=== PATIENT | male | born 1985 | race Hispanic/Latino ===

== ENCOUNTER 2018-12-03 22:33 | Emergency (ER) | payer SELFPAY ==
[2018-12-04] MEDS ORDERED: ONDANSETRON 4 MG/2 ML VIAL ONE (00:06)
[2018-12-04] MEDS ORDERED: NA CHLORIDE 0.9% 1,000 ML ONE (00:06)
[2018-12-04] MEDS ORDERED: MORPHINE 2 MG/ML SYR ONE (00:06)
[2018-12-04 00:24] LABS: Absolute Lymphocytes (CBC) 1.8 K/uL (0.7-4.9); Basophils % 0.5 % (0-1.3); Hematocrit 38.7 % (39.6-49.0); Lymphocytes % 34.3 % (15.3-44.8); MPV 7.9 fL (7.6-11.3); RBC Red Blood Cell Count 4.51 M/uL (4.33-5.43)
[2018-12-04 00:42] LABS: Protime INR 1.02
[2018-12-04 00:53] LABS: ALT/SGPT 43 U/L (12-78); AST/SGOT 21 U/L (15-37); Albumin 3.6 g/dL (3.4-5.0); Alkaline Phosphatase 64 U/L (45-117); BUN Blood Urea Nitrogen 15 mg/dL (7-18); Bicarbonate 26 mmol/L (21-32); Bilirubin Direct < 0.1 mg/dL (0-0.2); Bilirubin Total 0.4 mg/dL (0.2-1.0); Glucose Level 108 mg/dL (74-106); Lipase 164 U/L (73-393); Magnesium 2.2 mg/dL (1.8-2.4); NT PRO-BNP 45 pg/mL (<125); Potassium 3.6 mmol/L (3.5-5.1); Protein, Total 7.2 g/dL (6.4-8.2); Sodium Level 137 mmol/L (136-145); Troponin (Emerg Dept Use Only) < 0.02 ng/mL (0.0-0.045)
--- NOTE | 2018-12-04 02:58 | ER ---
Nurse's Notes [facility] Name: Mohit Plasencia Age: 33 yrs Sex: Male : 1985 Arrival Date: 12/03/2018 Time: 22:35 Bed 8 Private MD: Diagnosis: Vomiting;Diarrhea, unspecified;Abdominal tenderness;Chest pain, unspecified Presentation: 12/03 22:50 Presenting complaint: Patient states: he started feeling bad last night then this bb morning he started having abdominal pain with vomiting x 2 and diarrhea all day pt has extensive cardiac hx with a CABG and 3 stents. Transition of care: patient was not received from another setting of care. Onset of symptoms was December 03, 2018. Risk Assessment: Do you want to hurt yourself or someone else? Patient reports no desire to harm self or others. Initial Sepsis Screen: Does the patient meet any 2 criteria? No. Patient's initial sepsis screen is negative. Does the patient have a suspected source of infection? No. Patient's initial sepsis screen is negative. Care prior to arrival: None. 22:50 Method Of Arrival: Ambulatory bb 22:50 Acuity: CATHERINE 3 bb Historical: - Allergies: 22:59 No Known Allergies; bb - Home Meds: 22:59 Lisinopril Oral [Active]; Plavix Oral [Active]; Metoprolol Tartrate Oral [Active]; bb Zoloft Oral [Active]; aspirin 81 mg Oral chew 1 tab once daily [Active]; Nitroglycerin SL [Active]; - PMHx: 22:59 CAD; bb - PSHx: 22:59 Heart stents; CABG; bb - Immunization history:: Adult Immunizations up to date. - Social history:: Smoking status: Patient uses tobacco products, smokes one-half pack cigarettes per day, Patient uses alcohol, occasionally. Patient/guardian denies using street drugs. - Ebola Screening: : No symptoms or risks identified at this time. - Family history:: not pertinent. Screenin/19 00:18 Abuse screen: Denies threats or abuse. Denies injuries from another. Nutritional ak1 screening: No deficits noted. Tuberculosis screening: No symptoms or risk factors identified. Fall Risk None identified. Assessment: 00:18 General: Appears in no apparent distress. Behavior is calm, cooperative, appropriate ak1 for age. Pain: Pain began 1 day ago. Neuro: Level of Consciousness is awake, alert, obeys commands. Cardiovascular: Reports chest pain. Respiratory: Airway is patent Trachea midline Respiratory effort is even, unlabored. GI: Abdomen is non-distended, Bowel sounds present X 4 quads. Reports diarrhea, nausea. : No signs and/or symptoms were reported regarding the genitourinary system. EENT: No signs and/or symptoms were reported regarding the EENT system. Derm: No signs and/or symptoms reported regarding the dermatologic system. 00:20 Pain: Pain does not radiate. ak1 01:30 Reassessment: Patient and/or family updated on plan of care and expected duration. Pain ea level reassessed. Patient is alert, oriented x 3, equal unlabored respirations, skin warm/dry/pink. 02:03 Reassessment: Patient and/or family updated on plan of care and expected duration. Pain ea level reassessed. Patient is alert, oriented x 3, equal unlabored respirations, skin warm/dry/pink. Awaiting on CT results. 03:20 Reassessment: Patient and/or family updated on plan of care and expected duration. Pain ak1 level reassessed. pt resting with eyes closed. resp even and unlabored. 04:09 Reassessment: Patient denies pain at this time. Patient states feeling better. Patient ak1 states symptoms have improved. Vital Signs: 12/03 22:59 BP 142 / 85; Pulse 104; Resp 16 S; Temp 97.9(O); Pulse Ox 96% on R/A; Weight 109.32 kg bb (R); Height 5 ft. 10 in. (177.80 cm) (R); Pain 7/10; 23:55 BP 122 / 74; Pulse 91; Resp 18; Pulse Ox 99% ; ea 12/04 01:15 BP 134 / 67; Pulse 80; Resp 18; Pulse Ox 98% on R/A; ea 04:09 BP 118 / 62; Pulse 81; Resp 16; Temp 98.2; Pulse Ox 97% on R/A; ak1 12/03 22:59 Body Mass Index 34.58 (109.32 kg, 177.80 cm) bb ED Course: 12/03 22:35 Patient arrived in ED. ds1 22:51 Triage completed. bb 22:52 EKG done, by ED staff, reviewed by Cristobal Juan Diego MD. em1 22:59 Arm band placed on Patient placed in an exam room, on a stretcher, on practicing md anesthesiologist, bb on pulse oximetry. EKG completed in triage. Results shown to MD. Family accompanied patient. 23:16 Cristobal Adamson MD is Attending Physician. yulissa 23:55 Amarilys Polo, RN is Primary Nurse. ea 12/04 00:18 Initial lab(s) drawn, by me, sent to lab. Inserted saline lock: 20 gauge in right ak1 antecubital area, using aseptic technique. Blood collected. 00:18 Patient has correct armband on for positive identification. Placed in gown. Bed in low ak1 position. Call light in reach. Side rails up X 1. Adult w/ patient. concrete mixer on. Pulse ox on. NIBP on. Door closed. Warm blanket given. 00:20 Patient maintains SpO2 saturation greater than 95% on room air. ak1 00:51 XRAY Chest (1 view) In Process Unspecified. EDMS 01:47 CT Abd/Pelvis - PO and IV Contrast In Process Unspecified. EDMS 02:57 Car Zapata MD is Referral Physician. yulissa 04:10 No provider procedures requiring assistance completed. IV discontinued, intact, ak1 bleeding controlled, No redness/swelling at site. Pressure dressing applied. Administered Medications: 00:17 Drug: morphine 2 mg Route: IVP; Site: right antecubital; ak1 01:00 Follow up: Response: No adverse reaction; Pain is decreased ak1 00:17 Drug: Zofran 4 mg Route: IVP; Site: right antecubital; ak1 01:00 Follow up: Response: No adverse reaction ak1 00:18 Drug: NS 0.9% 1000 ml Route: IV; Rate: 1 bolus; Site: right antecubital; ak1 04:01 Not Given (Patient Refused): morphine 2 mg IVP once; RASS on ADMIN: Combtv4, Very ak1 Agttd3, Agttd2, Rstlss1, AlertClm0, Drwsy-1, Lt Sdtn-2, Mod Sdtn-3, Dp Sdtn-4, UnArsble-5 Outcome: 02:58 Discharge ordered by . yulissa 04:10 Discharged to home ambulatory, with family. ak1 04:10 Condition: good 04:10 Discharge instructions given to patient, family, Instructed on discharge instructions, follow up and referral plans. no drinking with medication, no driving heavy equipment, medication usage, Demonstrated understanding of instructions, follow-up care, medications, Prescriptions given X 2. 04:12 Patient left the ED. ak1 Signatures: Dispatcher [employer] EDOH Cristobal Adamson MD MD cha Sanford, Demi ds1 Luh Hdez, SARI RN Bishop Antoine Amber, RN RN ak1 Amarilys Polo RN RN elham
--- NOTE | 2018-12-04 02:59 | EDPHYS ---
Physician Documentation [facility] Name: Mohit Plasencia Age: 33 yrs Sex: Male : 1985 Arrival Date: 12/03/2018 Time: 22:35 Bed 8 Private MD: CONSUELO Physician Cristobal Adamson HPI: 12/04 00:03 This 33 yrs old Male presents to ER via Ambulatory with complaints of Chest yulissa Pain, Abdominal Pain, Dizziness. 00:03 The patient or guardian reports chest pain that is located primarily in the anterior [facility] chest wall. The pain does not radiate. Historical: - Allergies: 12/03 22:59 No Known Allergies; bb - Home Meds: 22:59 Lisinopril Oral [Active]; Plavix Oral [Active]; Metoprolol Tartrate Oral [Active]; bb Zoloft Oral [Active]; aspirin 81 mg Oral chew 1 tab once daily [Active]; Nitroglycerin SL [Active]; - PMHx: 22:59 CAD; bb - PSHx: 22:59 Heart stents; CABG; bb - Immunization history:: Adult Immunizations up to date. - Social history:: Smoking status: Patient uses tobacco products, smokes one-half pack cigarettes per day, Patient uses alcohol, occasionally. Patient/guardian denies using street drugs. - Ebola Screening: : No symptoms or risks identified at this time. - Family history:: not pertinent. ROS: 12/04 00:04 Constitutional: Negative for fever, chills, and weight loss, Eyes: Negative for injury, yulissa pain, redness, and discharge, ENT: Negative for injury, pain, and discharge, Neck: Negative for injury, pain, and swelling, Cardiovascular: Negative for chest pain, palpitations, and edema, Respiratory: Negative for shortness of breath, cough, wheezing, and pleuritic chest pain, Back: Negative for injury and pain, : Negative for injury, bleeding, discharge, and swelling, MS/Extremity: Negative for injury and deformity, Skin: Negative for injury, rash, and discoloration, Neuro: Negative for headache, weakness, numbness, tingling, and seizure, Psych: Negative for depression, anxiety, suicide ideation, homicidal ideation, and hallucinations, Allergy/Immunology: Negative for hives, rash, and allergies, Endocrine: Negative for neck swelling, polydipsia, polyuria, polyphagia, and marked weight changes, Hematologic/Lymphatic: Negative for swollen nodes, abnormal bleeding, and unusual bruising. Abdomen/GI: Positive for abdominal pain, nausea and vomiting. Exam: 00:04 Constitutional: This is a well developed, well nourished patient who is awake, alert, yulissa and in no acute distress. Head/Face: Normocephalic, atraumatic. Eyes: Pupils equal round and reactive to light, extra-ocular motions intact. Lids and lashes normal. Conjunctiva and sclera are non-icteric and not injected. Cornea within normal limits. Periorbital areas with no swelling, redness, or edema. ENT: Nares patent. No nasal discharge, no septal abnormalities noted. Tympanic membranes are normal and external auditory canals are clear. Oropharynx with no redness, swelling, or masses, exudates, or evidence of obstruction, uvula midline. Mucous membranes moist. Neck: Trachea midline, no thyromegaly or masses palpated, and no cervical lymphadenopathy. Supple, full range of motion without nuchal rigidity, or vertebral point tenderness. No Meningismus. Chest/axilla: Normal chest wall appearance and motion. Nontender with no deformity. No lesions are appreciated. Cardiovascular: Regular rate and rhythm with a normal S1 and S2. No gallops, murmurs, or rubs. Normal PMI, no JVD. No pulse deficits. Respiratory: Lungs have equal breath sounds bilaterally, clear to auscultation and percussion. No rales, rhonchi or wheezes noted. No increased work of breathing, no retractions or nasal flaring. Back: No spinal tenderness. No costovertebral tenderness. Full range of motion. Male : Normal genitalia with no discharge or lesions. Skin: Warm, dry with normal turgor. Normal color with no rashes, no lesions, and no evidence of cellulitis. MS/ Extremity: Pulses equal, no cyanosis. Neurovascular intact. Full, normal range of motion. Neuro: Awake and alert, GCS 15, oriented to person, place, time, and situation. Cranial nerves II-XII grossly intact. Motor strength 5/5 in all extremities. Sensory grossly intact. Cerebellar exam normal. Normal gait. Psych: Awake, alert, with orientation to person, place and time. Behavior, mood, and affect are within normal limits. 00:04 Abdomen/GI: Inspection: abdomen appears normal, Bowel sounds: hyperactive, Palpation: mild abdominal tenderness, moderate abdominal tenderness, in all quadrants, Liver: no appreciated palpable abnormalities, Hernia: not appreciated. Vital Signs: 12/03 22:59 BP 142 / 85; Pulse 104; Resp 16 S; Temp 97.9(O); Pulse Ox 96% on R/A; Weight 109.32 kg bb (R); Height 5 ft. 10 in. (177.80 cm) (R); Pain 7/10; 23:55 BP 122 / 74; Pulse 91; Resp 18; Pulse Ox 99% ; ea 12/04 01:15 BP 134 / 67; Pulse 80; Resp 18; Pulse Ox 98% on R/A; ea 04:09 BP 118 / 62; Pulse 81; Resp 16; Temp 98.2; Pulse Ox 97% on R/A; ak1 12/03 22:59 Body Mass Index 34.58 (109.32 kg, 177.80 cm) bb MDM: 12/03 23:16 Patient medically screened. [facility] 12/04 00:05 Data reviewed: vital signs, nurses notes, lab test result(s), EKG, radiologic studies, [facility] CT scan, plain films. 12/04 00:03 Order name: Basic Metabolic Panel; Complete Time: : [facility] 12/04 00:03 Order name: CBC with Diff; Complete Time: : [facility] 12/04 00:03 Order name: LFT's; Complete Time: : [facility] 12/04 00:03 Order name: Magnesium; Complete Time: : [facility] 12/04 00:03 Order name: NT PRO-BNP; Complete Time: : [facility] 12/04 00:03 Order name: PT-INR; Complete Time: : [facility] 12/04 00:03 Order name: Troponin (emerg Dept Use Only); Complete Time: : [facility] 12/04 00:03 Order name: XRAY Chest (1 view) [facility] 12/04 00:03 Order name: Lipase; Complete Time: : [facility] 12/04 00:03 Order name: CT Abd/Pelvis - PO and IV Contrast [facility] 12/04 02:57 Order name: Troponin (emerg Dept Use Only): 3 am [facility] 12/04 00:03 Order name: EKG; Complete Time: 00:05 [facility] 12/04 00:03 Order name: Cardiac monitoring; Complete Time: 00: [facility] 12/04 00:03 Order name: EKG - Nurse/Tech; Complete Time: 00: [facility] 12/04 00:03 Order name: IV Saline Lock; Complete Time: 00: [facility] 12/04 00:03 Order name: Labs collected and sent; Complete Time: 00: [facility] 12/04 00:03 Order name: O2 Per Protocol; Complete Time: 00: [facility] 12/04 00:03 Order name: O2 Sat Monitoring; Complete Time: 00: [facility] Administered Medications: 00:17 Drug: morphine 2 mg Route: IVP; Site: right antecubital; ak1 01:00 Follow up: Response: No adverse reaction; Pain is decreased ak1 00:17 Drug: Zofran 4 mg Route: IVP; Site: right antecubital; ak1 01:00 Follow up: Response: No adverse reaction ak1 00:18 Drug: NS 0.9% 1000 ml Route: IV; Rate: 1 bolus; Site: right antecubital; ak1 04:01 Not Given (Patient Refused): morphine 2 mg IVP once; RASS on ADMIN: Combtv4, Very ak1 Agttd3, Agttd2, Rstlss1, AlertClm0, Drwsy-1, Lt Sdtn-2, Mod Sdtn-3, Dp Sdtn-4, UnArsble-5 Disposition: 12/04/18 02:58 Discharged to Home. Impression: Vomiting, Diarrhea, unspecified, Abdominal tenderness, Chest pain, unspecified. - Condition is Stable. - Discharge Instructions: Abdominal Pain, Adult, Food Choices to Help Relieve Diarrhea, Adult, Nonspecific Chest Pain, Diarrhea, Adult, Nausea and Vomiting, Adult, Nausea and Vomiting, Adult, Pnkx-de-[id number], Abdominal Pain, Adult, Ydin-wh-Flgr, Nonspecific Chest Pain, Tofm-xh-Hgwb, Diarrhea, Adult, Ldyf-tp-Hnwt, Aspirin and Your Heart. - Prescriptions for Bentyl 20 mg Oral Tablet - take 1 tablet by ORAL route every 6 hours As needed; 20 tablet. Pepcid 20 mg Oral Tablet - take 1 tablet by ORAL route every 12 hours for 10 days; 20 tablet. Zofran 4 mg Oral Tablet - take 1 tablet by ORAL route every 12 hours As needed; 20 tablet. - Medication Reconciliation Form, Thank You Letter, Antibiotic Education, Prescription Opioid Use, Work release form, Family Work Release form. - Follow up: Private Physician; When: 2 - 3 days; Reason: Recheck today's complaints, Continuance of care, Re-evaluation by your physician. Follow up: Car Zapata; When: 2 - 3 days; Reason: Recheck today's complaints, Re-evaluation by your physician. - Problem is new. - Symptoms have improved. Signatures: Dispatcher [employer] EDMS Cristobal Adamson MD MD cha Ballard, Brenda, RN RN Kassandra Stevens RN RN ak1 Corrections: (The following items were deleted from the chart) 04:12 02:58 12/04/2018 02:58 Discharged to Home. Impression: Vomiting; Diarrhea, unspecified; ak1 Abdominal tenderness; Chest pain, unspecified. Condition is Stable. Discharge Instructions: Abdominal Pain, Adult, Food Choices to Help Relieve Diarrhea, Adult, Diarrhea, Adult, Nausea and Vomiting, Adult, Nausea and Vomiting, Adult, Rdnn-vd-Hacr, Abdominal Pain, Adult, Fgyf-fp-Uots, Diarrhea, Adult, Bcrt-rh-Rrun. Prescriptions for Bentyl 20 mg Oral Tablet - take 1 tablet by ORAL route every 6 hours As needed; 20 tablet, Pepcid 20 mg Oral Tablet - take 1 tablet by ORAL route every 12 hours for 10 days; 20 tablet, Zofran 4 mg Oral Tablet - take 1 tablet by ORAL route every 12 hours As needed; 20 tablet. and Forms are Medication Reconciliation Form, Thank You Letter, Antibiotic Education, Prescription Opioid Use. Follow up: Private Physician; When: 2 - 3 days; Reason: Recheck today's complaints, Continuance of care, Re-evaluation by your physician. Follow up: Car Zapata; When: 2 - 3 days; Reason: Recheck today's complaints, Re-evaluation by your physician. Problem is new. Symptoms have improved. yulissa
[2018-12-04 04:25] VITALS: BP 118/62; TEMP 98.2; O2SAT 97
--- NOTE | 2018-12-04 07:17 | EKG ---
Test Date: 2018-12-03 Test Time: 22:49:16 Load Manager: MIGUEL MEASUREMENT RESULTS: Intervals: Rate: 107 CO: 128 QRSD: 102 QT: 288 QTc: 384 Broadbent: P: 35 CO: 128 QRS: -20 T: -51 INTERPRETIVE STATEMENTS: Sinus tachycardia Inferior infarct, age undetermined Anterolateral infarct, age undetermined Abnormal ECG Compared to ECG 01/27/2004 17:01:00 Myocardial infarct finding now present Electronically Signed On 12-04-18 07:16:52 CDT by Ross Matta
--- NOTE | 2018-12-04 09:01 | RAD REPORT ---
EXAM DESCRIPTION: RAD - Chest Single View - 12/04/2018 12:50 am CLINICAL HISTORY: Abdominal pain, vomiting COMPARISON: None. TECHNIQUE: AP portable chest image was obtained 0039 hours . FINDINGS: Lungs are clear. Heart and vasculature are normal. No measurable pleural effusion and no p neumothorax. No acute bony abnormality seen. No acute aortic findings suspected. CABG surgical change s noted. IMPRESSION: No acute cardiopulmonary process.
--- NOTE | 2018-12-06 12:19 | RAD REPORT ---
EXAM DESCRIPTION: CT - Abdomen Pelvis W Contrast - 12/04/2018 2:49 am CLINICAL HISTORY: 33-year-old male with abdominal pain TECHNIQUE: Axial CT imaging of the abdomen and pelvis was performed following the administration of intravenous contrast.. Sagittal and coronal reconstructed images were then performed. The CT stud y is performed according to ALARA (as low as reasonably achievable) or ALARA/IMAGE GENTLY, with autom atic adjustment of mA and/or kV according to patient size. Performed on: 12/04/2018 at 1:36 AM. COMPARISON: No prior studies were available for comparison. FINDINGS: Lung bases: The lung bases are clear. Liver: The liver is enlarged and measures approximately 19 cm in craniocaudal dimension. No focal hep atic abnormalities are identified. Liver attenuation is within normal limits. Spleen: The spleen is normal is size, configuration and attenuation. Gallbladder and bile duct: The gallbladder is well distended and unremarkable. There is no biliary ductal dilatation. Pancreas: The pancreas is grossly normal in size and configuration. Adrenal Glands: The adrenal glands are normal in size and configuration. Kidneys: The kidneys are normal in size and configuration. There is no evidence of hydronephrosis. Th ere may be a punctate nonobstructing left renal calculus. No definite solid or cystic renal mass lesi ons are identified. Stomach: The stomach is grossly normal. There is no definite hiatal hernia. Bowel: The bowel gas pattern is non specific and non obstructive. There appears to be bowel wall thic kening involving several proximal small bowel loops in the left upper quadrant on the delayed images which is not appreciated on the portal venous phase images. Appendix: The appendix is normal. Free air: There is no evidence of free air. Free fluid: There is no evidence of free fluid. Vasculature: The aorta is normal in caliber and contour. The inferior vena cava is grossly unremarkab le. Lymphadenopathy: No pathologic lymphadenopathy is identified. Bladder: The bladder is well distended and smooth in contour. Reproductive: The prostate gland is grossly within normal limits. Bones: No acute osseous abnormalities are identified. Soft tissues: There is a fat-containing right-sided Spigelian hernia. This measures approximate 4.3 x 1.7 cm in cross-sectional diameter by 4.3 cm in craniocaudal dimension. IMPRESSION: 1. Fat-containing right-sided Spigelian hernia. 2. Hepatomegaly. 3. Possible punctate nonobstructing left renal calculus. Electronically signed by: Emily Wylie DO 12/04/2018 2:42 AM CDT Due to temporary technical issues with the PACS/Fluency reporting system, reports are being signed by the in house radiologist as a courtesy to ensure prompt reporting. The interpreting radiologist is f ully responsible for the content of the report.
== END 2018-12-04 04:12 | disposition home or self-care (01) ==
LOC: ER 22:33
DX: R10.819 Abdominal tenderness, unspecified site (principal); R11.10 Vomiting, unspecified; R19.7 Diarrhea, unspecified; F17.210 Nicotine dependence, cigarettes, uncomplicated; Z79.01 Long term (current) use of anticoagulants; Z79.82 Long term (current) use of aspirin; Z95.1 Presence of aortocoronary bypass graft; Z95.818 Presence of other cardiac implants and grafts
CPT/HCPCS: 36415; 71045; 74177; 80048; 80076; 83690; 83735; 83880; 84484; 85025; 85610; 93005; 96374; 96375; 99285; J2270; J2405; J7030; Q9967

== ENCOUNTER 2018-12-20 18:19 | Observation (INO) | payer SELFPAY ==
[2018-12-20] MEDS ORDERED: ASPIRIN 81 MG CHEWABLE TABLET ONE (18:59)
[2018-12-20] MEDS ORDERED: METOPROLOL TAR 25 MG TAB ONE (19:00)
[2018-12-20] MEDS ORDERED: SIMETHICONE 80 MG TAB ONE (19:00)
[2018-12-20] MEDS ORDERED: CLOPIDOGREL 75 MG TABLET ONE (19:00)
[2018-12-20 19:18] LABS: Protime INR 0.91
[2018-12-20 19:30] LABS: Absolute Lymphocytes (CBC) 2.5 K/uL (0.7-4.9); Basophils % 0.5 % (0-1.3); Hematocrit 42.2 % (39.6-49.0); Lymphocytes % 35.7 % (15.3-44.8); RBC Red Blood Cell Count 4.83 M/uL (4.33-5.43)
--- NOTE | 2018-12-20 19:58 | RAD REPORT ---
EXAM DESCRIPTION: RAD - Chest Single View - 12/20/2018 7:02 pm CLINICAL HISTORY: Chest pain COMPARISON: December 04 TECHNIQUE: AP portable chest image was obtained 1857 hours . FINDINGS: Lungs are clear. Heart and vasculature are normal. No measurable pleural effusion and no p neumothorax. No acute bony abnormality seen. No acute aortic findings suspected. Sternotomy wires are in place. IMPRESSION: No acute cardiopulmonary process. No significant change from comparison.
[2018-12-20] MEDS ORDERED: FENTANYL CITR 100 MCG/2 ML ONE (20:42)
[2018-12-20 20:52] LABS: ALT/SGPT 47 U/L (12-78); Albumin 3.7 g/dL (3.4-5.0); Alkaline Phosphatase 60 U/L (45-117); BUN Blood Urea Nitrogen 16 mg/dL (7-18); Bicarbonate 23 mmol/L (21-32); Bilirubin Direct < 0.1 mg/dL (0-0.2); Bilirubin Total 0.2 mg/dL (0.2-1.0); Glucose Level 110 mg/dL (74-106); NT PRO-BNP 33 pg/mL (<125); Sodium Level 140 mmol/L (136-145); Troponin (Emerg Dept Use Only) < 0.02 ng/mL (0.0-0.045)
--- NOTE | 2018-12-20 21:03 | ER ---
Nurse's Notes [facility] Name: Mohit Plasencia Age: 33 yrs Sex: Male : 1985 Arrival Date: 12/20/2018 Time: 18:20 Bed 7 Private MD: Diagnosis: Chest pain, unspecified Presentation: 12/20 18:21 Presenting complaint: Patient states: Chest pain that started 3 hours ago that lasted aj1 for an hour and then resolved. One hour ago he started having chest pain again, he took his Nitro x3 doses, and it didn't help his chest pain at all. Patient reports that he has had 5 previous TN's and reports that this chest feels similar. Transition of care: patient was not received from another setting of care. Onset of symptoms was December 20, 2018 at 15:45. Risk Assessment: Do you want to hurt yourself or someone else? Patient reports no desire to harm self or others. Initial Sepsis Screen: Does the patient meet any 2 criteria?. Initial Sepsis Screen: Does the patient have a suspected source of infection? No. Patient's initial sepsis screen is negative. Care prior to arrival: None. 18:21 Method Of Arrival: Ambulatory aj1 18:21 Acuity: CATHERINE 2 aj1 Triage Assessment: 18:25 General: Appears in no apparent distress. uncomfortable, Behavior is calm, cooperative, aj1 appropriate for age. Pain: Complains of pain in chest Pain currently is 7 out of 10 on a pain scale. Neuro: Level of Consciousness is awake, alert, obeys commands. Cardiovascular: Patient's skin is warm and dry. Respiratory: Airway is patent Respiratory effort is even, unlabored, Respiratory pattern is regular, symmetrical. Historical: - Allergies: 18:25 No Known Allergies; aj1 - PMHx: 18:25 CAD; Myocardial infarction; x5; cardiac stents; triple bypass; aj1 - Immunization history:: Flu vaccine is up to date. - Social history:: Smoking status: Patient uses tobacco products, smokes one-half pack cigarettes per day. - Ebola Screening: : Patient denies travel to an Ebola-affected area in the 21 days before illness onset. Screenin:11 Abuse screen: Denies threats or abuse. Denies injuries from another. Nutritional aa1 screening: No deficits noted. Tuberculosis screening: No symptoms or risk factors identified. Fall Risk None identified. Assessment: 19:11 General: Appears in no apparent distress. comfortable, Behavior is calm, cooperative, aa1 appropriate for age. Pain: Complains of pain in chest Pain does not radiate. Pain currently is 2 out of 10 on a pain scale. Quality of pain is described as pressure, Pain began 3 hours ago. Is intermittent. Neuro: Level of Consciousness is awake, alert, obeys commands, Oriented to person, place, time, situation, Moves all extremities. Full function Speech is normal. Cardiovascular: Reports chest pain, Denies diaphoresis, nausea, palpitations, shortness of breath, Heart tones S1 S2 present Capillary refill < 3 seconds Clubbing of nail beds is absent JVD is absent Patient's skin is warm and dry. Rhythm is regular Chest pain is described as vague, quality is pressure, is located in substernal area began 3 hours prior to arrival episodes are intermittent. Respiratory: Airway is patent Respiratory effort is even, unlabored, Respiratory pattern is regular, symmetrical, Breath sounds are clear bilaterally. GI: No signs and/or symptoms were reported involving the gastrointestinal system. : No signs and/or symptoms were reported regarding the genitourinary system. EENT: No signs and/or symptoms were reported regarding the EENT system. Derm: Skin is intact, is healthy with good turgor, Skin is pink, warm \T\ dry. Musculoskeletal: Circulation, motion, and sensation intact. Capillary refill < 3 seconds. 20:00 Reassessment: Patient appears in no apparent distress at this time. Patient and/or aa1 family updated on plan of care and expected duration. Pain level reassessed. Patient is alert, oriented x 3, equal unlabored respirations, skin warm/dry/pink. Pt requesting pain medication; HOUSE DETECTIVE notified. 21:00 Reassessment: Patient appears in no apparent distress at this time. Patient and/or aa1 family updated on plan of care and expected duration. Pain level reassessed. Patient is alert, oriented x 3, equal unlabored respirations, skin warm/dry/pink. Pt reports pain has resolved after fentanyl Patient denies pain at this time. Patient states feeling better. 22:25 Reassessment: Patient appears in no apparent distress at this time. Patient and/or aa1 family updated on plan of care and expected duration. Pain level reassessed. Patient is alert, oriented x 3, equal unlabored respirations, skin warm/dry/pink. Per Dr. De La Garza, pt to be held in ED until lipase has been resulted and possible CT. Pt and family informed. 23:56 Reassessment: Patient appears in no apparent distress at this time. Patient and/or aa1 family updated on plan of care and expected duration. Pain level reassessed. Patient is alert, oriented x 3, equal unlabored respirations, skin warm/dry/pink. Report given to SARI Longo on 2nd floor. Vital Signs: 18:25 BP 149 / 66; Pulse 98; Resp 18; Temp 97.9; Pulse Ox 98% on R/A; Weight 111.58 kg (R); aj1 Height 5 ft. 10 in. (177.80 cm) (R); 19:30 BP 134 / 83; Pulse 88; Resp 18; Pulse Ox 98% on R/A; aa1 20:00 BP 131 / 81; Pulse 76; Resp 16; Pulse Ox 95% on R/A; Pain 6/10; aa1 21:00 BP 133 / 85; Pulse 79; Resp 18; Temp 98.2; Pulse Ox 97% on R/A; Pain 0/10; aa1 22:00 BP 129 / 94; Pulse 77; Resp 18; Pulse Ox 98% on R/A; Pain 0/10; aa1 23:00 BP 135 / 80; Pulse 86; Resp 16; Temp 98.0; Pulse Ox 97% on R/A; Pain 0/10; aa1 23:56 BP 132 / 71; Pulse 82; Resp 16; Temp 98.1; Pulse Ox 97% on R/A; Pain 0/10; aa1 18:25 Body Mass Index 35.30 (111.58 kg, 177.80 cm) aj1 ED Course: 18:20 Patient arrived in ED. mr 18:24 Triage completed. aj1 18:25 Arm band placed on Patient placed in an exam room. aj1 18:27 Maritza Brown FNP-C [facility]. snw 18:27 Cristobal Adamson MD is Attending Physician. snw 18:37 Missed attempt(s): 20 gauge in right wrist. Bleeding controlled, band aid applied, dh3 catheter tip intact. 18:39 Initial lab(s) drawn, by me, sent to lab. Inserted saline lock: 20 gauge in right dh3 antecubital area, using aseptic technique. Blood collected. 19:03 XRAY Chest (1 view) In Process Unspecified. EDMS 19:11 Patient has correct armband on for positive identification. Bed in low position. Call aa1 light in reach. monitor car operator on. Pulse ox on. NIBP on. 19:11 Patient maintains SpO2 saturation greater than 95% on room air. aa1 19:30 Nicole Terrazas RN is Primary Nurse. aa1 21:02 Cassidy De La Garza MD is Hospitalizing Provider. snw 23:52 No provider procedures requiring assistance completed. Patient admitted, IV remains in aa1 place. Administered Medications: 19:06 Drug: PlaVIX 600 mg Route: PO; sg 20:06 Follow up: Response: No adverse reaction aa1 19:06 Drug: Aspirin Chewable Tablet 324 mg Route: PO; sg 20:06 Follow up: Response: No adverse reaction aa1 19:06 Drug: Simethicone 120 mg Route: PO; sg 20:06 Follow up: Response: No adverse reaction aa1 19:06 Drug: Metoprolol 25 mg Route: PO; sg 20:06 Follow up: Response: No adverse reaction aa1 20:46 Drug: fentaNYL (PF) 25 mcg Route: IVP; Site: right antecubital; aa1 21:46 Follow up: Response: No adverse reaction; Pain is decreased; RASS: Alert and Calm (0) aa1 Outcome: 21:02 Decision to Hospitalize by Provider. snw 12/21 00:27 Admitted to Tele accompanied by tech, family with patient, via wheelchair, room 225, aa1 with chart, Report called to SARI Longo Condition: good Instructed on the need for admit, Demonstrated understanding of instructions. 00:27 Patient left the ED. aa1 Signatures: Dispatcher [employer] Ayde Peng RN RN Jimmy Arce RN RN Nicole Terrazas RN RN aa1 Maritza Brown, CUPOLA OPERATOR INSULATION-C CUPOLA OPERATOR INSULATION-Kirstinw Lilian Schultz, [place] [id number]
--- NOTE | 2018-12-20 21:03 | EDPHYS ---
Physician Documentation [facility] Name: Mohit Plasencia Age: 33 yrs Sex: Male : 1985 Arrival Date: 12/20/2018 Time: 18:20 Bed 7 Private MD: CONSUELO Physician Cristobal Adamson HPI: 12/20 18:50 This 33 yrs old Male presents to ER via Ambulatory with complaints of Chest snw Pain. 18:50 The patient or guardian reports chest pain that is located primarily in the anterior snw chest wall, left. The pain radiates to Associated signs and symptoms: Pertinent positives: air bubble into chest that makes him feel like it is coming out his back. The chest pain is described as a heaviness, a pressure, sharp. Duration: The patient or guardian reports multiple episodes, the episodes last approximately 1 hour(s). Modifying factors: The symptoms are alleviated by NTG, X3. pain continues and is radiating to back. Severity of pain: At its worst the pain was moderate. The patient has experienced similar episodes in the past. The patient has not recently seen a physician, pt has not taken his medications since Oct - just moved to [facility] and has not taken meds since he left [facility]. . Historical: - Allergies: 18:25 No Known Allergies; aj1 - PMHx: 18:25 CAD; Myocardial infarction; x5; cardiac stents; triple bypass; aj1 - Immunization history:: Flu vaccine is up to date. - Social history:: Smoking status: Patient uses tobacco products, smokes one-half pack cigarettes per day. - Ebola Screening: : Patient denies travel to an Ebola-affected area in the 21 days before illness onset. ROS: 18:49 Constitutional: Negative for fever, chills, and weight loss, Eyes: Negative for injury, snw pain, redness, and discharge, ENT: Negative for injury, pain, and discharge, Neck: Negative for injury, pain, and swelling, Respiratory: Negative for shortness of breath, cough, wheezing, and pleuritic chest pain, Abdomen/GI: Negative for abdominal pain, nausea, vomiting, diarrhea, and constipation, Back: Negative for injury and pain, : Negative for injury, bleeding, discharge, and swelling, MS/Extremity: Negative for injury and deformity, Neuro: Negative for headache, weakness, numbness, tingling, and seizure, Psych: Negative for depression, anxiety, suicide ideation, homicidal ideation, and hallucinations. 18:49 Cardiovascular: Positive for chest pain, of the chest. 18:49 Skin: Positive for diaphoresis. Exam: 18:49 Constitutional: This is a well developed, well nourished patient who is awake, alert, snw and in no acute distress. Head/Face: Normocephalic, atraumatic. Eyes: Pupils equal round and reactive to light, extra-ocular motions intact. Lids and lashes normal. Conjunctiva and sclera are non-icteric and not injected. Cornea within normal limits. Periorbital areas with no swelling, redness, or edema. ENT: Nares patent. No nasal discharge, no septal abnormalities noted. Tympanic membranes are normal and external auditory canals are clear. Oropharynx with no redness, swelling, or masses, exudates, or evidence of obstruction, uvula midline. Mucous membranes moist. Neck: Trachea midline, no thyromegaly or masses palpated, and no cervical lymphadenopathy. Supple, full range of motion without nuchal rigidity, or vertebral point tenderness. No Meningismus. Chest/axilla: Normal chest wall appearance and motion. Nontender with no deformity. No lesions are appreciated. Cardiovascular: Regular rate and rhythm with a normal S1 and S2. No gallops, murmurs, or rubs. Normal PMI, no JVD. No pulse deficits. Respiratory: Lungs have equal breath sounds bilaterally, clear to auscultation and percussion. No rales, rhonchi or wheezes noted. No increased work of breathing, no retractions or nasal flaring. Abdomen/GI: Soft, non-tender, with normal bowel sounds. No distension or tympany. No guarding or rebound. No evidence of tenderness throughout. Back: No spinal tenderness. No costovertebral tenderness. Full range of motion. Skin: Warm, dry with normal turgor. Normal color with no rashes, no lesions, and no evidence of cellulitis. MS/ Extremity: Pulses equal, no cyanosis. Neurovascular intact. Full, normal range of motion. Neuro: Awake and alert, GCS 15, oriented to person, place, time, and situation. Cranial nerves II-XII grossly intact. Motor strength 5/5 in all extremities. Sensory grossly intact. Cerebellar exam normal. Normal gait. Psych: Awake, alert, with orientation to person, place and time. Behavior, mood, and affect are within normal limits. Vital Signs: 18:25 BP 149 / 66; Pulse 98; Resp 18; Temp 97.9; Pulse Ox 98% on R/A; Weight 111.58 kg (R); aj1 Height 5 ft. 10 in. (177.80 cm) (R); 19:30 BP 134 / 83; Pulse 88; Resp 18; Pulse Ox 98% on R/A; aa1 20:00 BP 131 / 81; Pulse 76; Resp 16; Pulse Ox 95% on R/A; Pain 6/10; aa1 21:00 BP 133 / 85; Pulse 79; Resp 18; Temp 98.2; Pulse Ox 97% on R/A; Pain 0/10; aa1 22:00 BP 129 / 94; Pulse 77; Resp 18; Pulse Ox 98% on R/A; Pain 0/10; aa1 23:00 BP 135 / 80; Pulse 86; Resp 16; Temp 98.0; Pulse Ox 97% on R/A; Pain 0/10; aa1 23:56 BP 132 / 71; Pulse 82; Resp 16; Temp 98.1; Pulse Ox 97% on R/A; Pain 0/10; aa1 18:25 Body Mass Index 35.30 (111.58 kg, 177.80 cm) aj1 MDM: 18:28 Patient medically screened. [facility] 21:02 Data reviewed: vital signs, nurses notes, lab test result(s), EKG, radiologic studies. [facility] Physician consultation: Cassidy De La Garza MD was called at 21:03, was contacted at 21:03, regarding admission, to the telemetry unit. 12/20 18:28 Order name: Basic Metabolic Panel; Complete Time: 23:10 w 12/20 18:28 Order name: CBC with Diff; Complete Time: 19:43 snw 12/20 18:28 Order name: LFT's; Complete Time: 23:10 snw 12/20 18:28 Order name: Magnesium; Complete Time: 23:10 snw 12/20 18:28 Order name: NT PRO-BNP; Complete Time: 23:10 snw 12/20 18:28 Order name: PT-INR; Complete Time: 19:31 snw 12/20 18:28 Order name: Troponin (emerg Dept Use Only); Complete Time: 23:10 snw 12/20 18:28 Order name: UDS; Complete Time: 23:10 snw 12/20 22:14 Order name: Lipase; Complete Time: 23:25 EDMS 12/20 22:14 Order name: Lipid Profile; Complete Time: 23:25 EDMD 12/20 22:18 Order name: Basic Metabolic Panel EDMD 12/20 22:18 Order name: Basic Metabolic Panel [facility] 12/20 22:18 Order name: CBC with Automated Diff EDMS 12/20 22:18 Order name: CBC with Automated Diff EDMS 12/20 18:28 Order name: XRAY Chest (1 view); Complete Time: 20:06 snw 12/20 18:28 Order name: EKG; Complete Time: 18:29 snw 12/20 18:28 Order name: Cardiac monitoring; Complete Time: 18:37 snw 12/20 18:28 Order name: EKG - Nurse/Tech; Complete Time: 18:37 snw 12/20 22:18 Order name: Troponin I [facility] 12/20 22:18 Order name: Troponin I [facility] 12/20 22:18 Order name: Troponin I [facility] 12/20 22:22 Order name: Lipase [facility] 12/20 22:42 Order name: Urine Dipstick--Ancillary (enter results) fl 12/20 22:57 Order name: Urine Dipstick-Ancillary; Complete Time: 23:10 [facility] 12/20 23:24 Order name: LDL, Direct; Complete Time: 23:25 [facility] 12/20 18:28 Order name: IV Saline Lock; Complete Time: 18:54 snw 12/20 18:28 Order name: Labs collected and sent; Complete Time: 18:54 snw 12/20 18:28 Order name: O2 Per Protocol; Complete Time: 18:37 snw 12/20 18:28 Order name: O2 Sat Monitoring; Complete Time: 18:37 snw Administered Medications: 19:06 Drug: PlaVIX 600 mg Route: PO; sg 20:06 Follow up: Response: No adverse reaction aa1 19:06 Drug: Aspirin Chewable Tablet 324 mg Route: PO; sg 20:06 Follow up: Response: No adverse reaction aa1 19:06 Drug: Simethicone 120 mg Route: PO; sg 20:06 Follow up: Response: No adverse reaction aa1 19:06 Drug: Metoprolol 25 mg Route: PO; sg 20:06 Follow up: Response: No adverse reaction aa1 20:46 Drug: fentaNYL (PF) 25 mcg Route: IVP; Site: right antecubital; aa1 21:46 Follow up: Response: No adverse reaction; Pain is decreased; RASS: Alert and Calm (0) aa1 Disposition: 12/21 07:20 Co-signature as Attending Physician, Cristobal Adamson MD I agree with the assessment and [facility] plan of care. Disposition: 12/20/18 21:02 Hospitalization ordered by Cassidy De La Garza for Observation. Preliminary diagnosis is Chest pain, unspecified. - Bed requested for Telemetry/MedSurg (observation). - Status is Observation. aa1 - Condition is Stable. - Problem is an acute exacerbation. - Symptoms are unchanged. UTI on Admission? No Signatures: Dispatcher [employer] EDMD Ayde Walker RN RN aj1 Jimmy Hicks RN RN sg Autenrieth, Alissa, RN RN aa1 Cristobal Adamson MD MD cha Therrien, Shelly, SHOE REPAIRER HELPER-C SHOE REPAIRER HELPER-Csnw Erin Chapman, RN RN cg Corrections: (The following items were deleted from the chart) 12/20 21:02 21:02 Hospitalization Ordered by Cassidy De La Garza MD for Observation. Preliminary snw diagnosis is Chest pain, unspecified. Bed requested for Telemetry/MedSurg (observation). Status is Observation. Condition is Stable. Problem is an acute exacerbation. Symptoms are unchanged. UTI on Admission? No. snw 22:22 22:14 Lipase ordered. EDMD EDMS 23:51 21:02 12/20/2018 21:02 Hospitalization Ordered by Cassidy De La Garza MD for Observation. cg Preliminary diagnosis is Chest pain, unspecified. Bed requested for Telemetry/MedSurg (observation). Status is Observation. Condition is Stable. Problem is an acute exacerbation. Symptoms are unchanged. UTI on Admission? No. snw 23:55 23:51 12/20/2018 21:02 Hospitalization Ordered by Cassidy De La Garza MD for Observation. aa1 Preliminary diagnosis is Chest pain, unspecified. Bed requested for Telemetry/MedSurg (observation). Status is Observation. Condition is Stable. Problem is an acute exacerbation. Symptoms are unchanged. UTI on Admission? No. cg 12/21 00:27 12/20 23:55 12/20/2018 21:02 Hospitalization Ordered by Cassidy De La Garza MD for aa1 Observation. Preliminary diagnosis is Chest pain, unspecified. Bed requested for Telemetry/MedSurg (observation). Status is Observation. Condition is Stable. Problem is an acute exacerbation. Symptoms are unchanged. UTI on Admission? No. aa1
[2018-12-20] MEDS ORDERED: ACETAMINOPHEN 500 MG TAB PO PRN (22:12)
[2018-12-20] MEDS ORDERED: ALPRAZOLAM 0.25 MG TABLET PO PRN (22:12)
[2018-12-20 22:56] LABS: Urine Blood NEGATIVE (NEG); Urine Glucose NEGATIVE (NEG); Urine Protein NEGATIVE (NEG); Urine Specific Gravity >1.030 (1.005-1.030)
[2018-12-20 22:57] LABS: Barbiturates NEGATIVE (NEGATIVE); Benzodiazepines NEGATIVE (NEGATIVE); Cocaine NEGATIVE (NEGATIVE); METHAMPHETAM NEGATIVE (NEGATIVE); Methadone NEGATIVE (NEGATIVE); Opiates NEGATIVE (NEGATIVE); Phencyclidine NEGATIVE (NEGATIVE); THC Cannibis NEGATIVE (NEGATIVE)
[2018-12-20 23:03] LABS: HDL Cholesterol 32 mg/dL (40-60); LDL Cholesterol, Calculated ND (<130); Lipase 225 U/L (73-393)
[2018-12-20 23:19] LABS: LDL, Direct 161 mg/dL (100-129)
[2018-12-21 00:48] VITALS: BMI 34.3
[2018-12-21] MEDS: MORPHINE 4 MG/ML SYR IV PRN ×3 (01:03→09:20)
[2018-12-21 01:44] VITALS: TEMP 97.4
[2018-12-21 01:57] VITALS: O2SAT 93
[2018-12-21] MEDS ORDERED: INFLUENZA VACCINE (for 3y+) 0.5 ML DOSE IMVAC ONE (02:18)
[2018-12-21 02:25] LABS: Urine Appearance CLEAR; Urine Bilirubin NEGATIVE (NEG); Urine Blood NEGATIVE (NEG); Urine Color YELLOW; Urine Glucose NEGATIVE (NEG); Urine Protein NEGATIVE (NEG); Urine Specific Gravity 1.025 (1.005-1.030); Urine Urobilinogen 0.2 mg/dL (0.2-1.0)
[2018-12-21 02:30] LABS: Urine Microscopic Reflex NO UMIC
[2018-12-21 05:58] LABS: Absolute Lymphocytes (CBC) 2.8 K/uL (0.7-4.9); Basophils % 0.7 % (0-1.3); Hematocrit 39.6 % (39.6-49.0); RBC Red Blood Cell Count 4.58 M/uL (4.33-5.43)
[2018-12-21 06:07] LABS: BUN Blood Urea Nitrogen 16 mg/dL (7-18); Bicarbonate 28 mmol/L (21-32); Glucose Level 113 mg/dL (74-106); Sodium Level 141 mmol/L (136-145); Troponin I < 0.02 ng/mL (0.0-0.045)
--- NOTE | 2018-12-21 08:59 | P.HP ---
Certification for Inpatient Patient admitted to: Observation With expected LOS: <2 Midnights Patient will require the following post-hospital care: None Practitioner: I am a practitioner with admitting privileges, knowledge of patient current condition, hospital course, and medical plan of care. Services: Services provided to patient in accordance with Admission requirements found in Title 42 Section 412.3 of the Code of Federal Regulations Patient History Date of Service: 12/21/18 Reason for admission: Chest pain rule out acute coronary syndrome History of Present Illness: Patient is a 33-year-old gentleman who came to the hospital with chest discomfort. Pain was mainly in the sternal region. Patient has a history of coronary artery disease. He had stents placed at 23. He had coronary artery bypass grafting at 31. He had repeat stents at 32. Patient had been imprisoned and has not been taking any cardiac meds. He refused to take his meds and skilled nursing because he thought they were contaminated. Once he was discharged he has not been able to get into the physician's office because of insurance. He came into the ER because his chest pain was worsening. Patient is a significant history of cardiac disease. He will be admitted for observation. Will resume his cardiac meds and check the lipid profile as well. Cardiology consultation as well. Allergies No Known Allergies Allergy (Verified 12/21/18 00:38) Home Medications: Aspirin [Aspirin EC 81 MG] 1 tab PO DAILY 12/21/18 Atorvastatin Calcium [Lipitor] 1 tab PO BEDTIME 12/21/18 Clopidogrel Bisulfate [Plavix*] 1 tab PO DAILY 12/21/18 Isosorbide Mononitrate [Isosorbide Mononitrate ER] 1 tab PO DAILY 12/21/18 Lisinopril 20 mg PO DAILY 12/21/18 Metoprolol Tartrate [Lopressor] 1 tab PO BID 12/21/18 Nitroglycerin [Nitrostat*] 1 tab PO SEECOM PRN 12/21/18 Sertraline [Zoloft*] 1 tab PO DAILY 12/21/18 - Past Medical/Surgical History Has patient received pneumonia vaccine in the past: No Diabetic: No -: Clotting disorder -: [place] 5x started at 23 y/o -: High Cholesterol -: Hypertension -: Depression/ Anxiety -: Triple bypass -: 3 stents twice - Family History Father Medical History: Hypertension, Diabetes, Other (see notes) Notes: Dialysis Mother Medical History: Hypertension - Social History Smoking Status: Current every day smoker Alcohol use: Yes CD- Drugs: No Caffeine use: Yes Place of Residence: Home Review of Systems 10-point ROS is otherwise unremarkable Physical Examination - Vital Signs Temperature: 97.4 F Blood Pressure: 136/66 Pulse: 84 Respirations: 18 Pulse Ox (%): 93 - Physical Exam General: Alert, In no apparent distress, Oriented x3 HEENT: Atraumatic, PERRLA, Mucous membr. moist/pink, EOMI, Sclerae nonicteric Neck: Supple, 2+ carotid pulse no bruit, No LAD, Without JVD or thyroid abnormality Respiratory: Clear to auscultation bilaterally, Normal air movement Cardiovascular: Regular rate/rhythm, Normal S1 S2, No murmurs Gastrointestinal: Normal bowel sounds, Soft and benign, Non-distended, No tenderness Musculoskeletal: No clubbing, No swelling, No tenderness Integumentary: No rashes Neurological: Normal gait, Normal speech, Normal strength at 5/5 x4 extr, Normal tone, Sensation intact, Cranial nerves 3-12 intact, Normal affect Lymphatics: No axilla or inguinal lymphadenopathy - Studies Laboratory Data (last 24 hrs) 12/20/18 19:59: Sodium 140, Potassium , BUN 16, Creatinine 1.12, Glucose 110 H, Magnesium , Total Bilirubin 0.2, AST , ALT 47, Alkaline Phosphatase 60, Lipase Cancelled 12/20/18 18:39: PT 10.8, INR 0.91 12/20/18 18:39: WBC 7.1, Hgb 14.4, Hct 42.2, Plt Count 297 Assessment & Plan - Problems (Diagnosis) (1) Chest pain, rule out acute myocardial infarction Current Visit: Yes Status: Acute (2) Coronary artery disease Current Visit: Yes Status: Acute (3) Status post coronary artery bypass graft Current Visit: Yes Status: Acute - Plan 1. Serial troponins and EKG 2. Cardiology consultation 3. Echocardiogram 4. Anti-platelet therapy, anti coagulation, beta-marcelino, statin, and O2 as needed 5. IV morphine for pain 6. Nitro p.r.n. Discharge Plan: Home Plan to discharge in: 24 Hours - Advance Directives Does patient have a Living Will: No Does patient have a Durable POA for Healthcare: No - Code Status/Comfort Care Code Status Assessed: Yes Code Status: Full Code Critical Care: No Time Spent Managing PTS Care (In Minutes): 45
[2018-12-21] MEDS ORDERED: ASPIRIN EC 81 MG TAB PO SCH (09:00)
[2018-12-21] MEDS ORDERED: CLOPIDOGREL 75 MG TABLET PO SCH (09:00)
[2018-12-21] MEDS ORDERED: METOPROLOL TAR 50 MG TAB PO SCH (09:00)
[2018-12-21] MEDS ORDERED: ENOXAPARIN 40 MG/0.4 ML SQ SCH (09:00)
[2018-12-21 09:23] VITALS: BP 134/75
--- NOTE | 2018-12-21 11:52 | P.SSS ---
Patient History Date of Service: 12/21/18 Reason for admission: Chest pain rule out acute coronary syndrome History of Present Illness: Patient is a 33-year-old gentleman who came to the hospital with chest discomfort. Pain was mainly in the sternal region. Patient has a history of coronary artery disease. He had stents placed at 23. He had coronary artery bypass grafting at 31. He had repeat stents at 32. Patient had been imprisoned and has not been taking any cardiac meds. He refused to take his meds and skilled nursing because he thought they were contaminated. Once he was discharged he has not been able to get into the physician's office because of insurance. He came into the ER because his chest pain was worsening. Patient is a significant history of cardiac disease. He will be admitted for observation. Will resume his cardiac meds and check the lipid profile as well. Cardiology consultation as well. Allergies No Known Allergies Allergy (Verified 12/21/18 00:38) Home Medications: Aspirin Chewable [Aspirin Chewable*] 81 mg PO DAILY 100 Days #100 tab.chew 12/21 Aspirin [Aspirin EC 81 MG] 1 tab PO DAILY 12/21/18 Atorvastatin Calcium [Lipitor] 1 tab PO BEDTIME 12/21/18 Clopidogrel Bisulfate [Plavix*] 1 tab PO DAILY 12/21/18 Isosorbide Mononitrate [Isosorbide Mononitrate ER] 1 tab PO DAILY 12/21/18 Lisinopril 20 mg PO DAILY 12/21/18 Metoprolol Tartrate [Lopressor*] 50 mg PO DAILY 30 Days #30 tab 12/21/18 Metoprolol Tartrate [Lopressor] 1 tab PO BID 12/21/18 Nitroglycerin [Nitrostat*] 1 tab PO SEECOM PRN 12/21/18 Nitroglycerin [Nitrostat] 0.4 mg SL PRN PRN #25 tab 12/21/18 Sertraline [Zoloft*] 1 tab PO DAILY 12/21/18 Simvastatin [Zocor] 80 mg PO DAILY 30 Days #30 tablet 12/21/18 - Past Medical/Surgical History Has patient received pneumonia vaccine in the past: No Diabetic: No -: Clotting disorder -: OK 5x started at 23 y/o -: High Cholesterol -: Hypertension -: Depression/ Anxiety -: Triple bypass -: 3 stents twice - Family History Father -: Hypertension, Diabetes, Other (see notes) Notes: Dialysis Mother -: Hypertension - Social History Smoking Status: Current every day smoker Alcohol use: Yes CD- Drugs: No Caffeine use: Yes Place of Residence: Home Review of Systems 10-point ROS is otherwise unremarkable Physical Examination - Vital Signs Temperature: 97.4 F Blood Pressure: 134/75 Pulse: 82 Respirations: 18 Pulse Ox (%): 93 - Physical Exam General: Alert, In no apparent distress HEENT: Atraumatic, PERRLA, Mucous membr. moist/pink, EOMI, Sclerae nonicteric Neck: Supple, 2+ carotid pulse no bruit, No LAD, Without JVD or thyroid abnormality Respiratory: Clear to auscultation bilaterally, Normal air movement Cardiovascular: Regular rate/rhythm, Normal S1 S2 Gastrointestinal: Normal bowel sounds, No tenderness Musculoskeletal: No tenderness Integumentary: No rashes Neurological: Normal gait, Normal speech, Normal strength at 5/5 x4 extr, Normal tone, Normal affect Lymphatics: No axilla or inguinal lymphadenopathy - Studies Laboratory Data (last 24 hrs) 12/20/18 19:59: Sodium 140, Potassium , BUN 16, Creatinine 1.12, Glucose 110 H, Magnesium , Total Bilirubin 0.2, AST , ALT 47, Alkaline Phosphatase 60, Lipase Cancelled 12/20/18 18:39: PT 10.8, INR 0.91 12/20/18 18:39: WBC 7.1, Hgb 14.4, Hct 42.2, Plt Count 297 - Diagnosis (Problem(s)) (1) Chest pain, rule out acute myocardial infarction Current Visit: Yes Status: Acute (2) Coronary artery disease Current Visit: Yes Status: Acute (3) Status post coronary artery bypass graft Current Visit: Yes Status: Acute Treatment Summary: Patient was initially admitted to the hospital for chest pain given the extensive history of CAD. Cardiology evaluated the patient here in the hospital recommended the patient be discharged home now that he has ruled out ACS. Stress test and echocardiogram will be done outpatient. Patient given instructions to follow up with cardiology. Given prescriptions for metoprolol Lipitor aspirin and nitroglycerin as per cardiology recommendations as well. - Disposition Disposition: ROUTINE DISCHARGE Condition: GOOD Diet: Regular Activity: Ad lenora
--- NOTE | 2018-12-21 12:21 | EKG ---
Test Date: 2018-12-20 Test Time: 18:33:52 Railroad Operator: KETTY MEASUREMENT RESULTS: Intervals: Rate: 97 SC: 128 QRSD: 102 QT: 316 QTc: 401 [place]: P: 46 SC: 128 QRS: -6 T: -63 INTERPRETIVE STATEMENTS: Normal sinus rhythm Minimal voltage criteria for LVH, may be normal variant Inferior infarct, age undetermined Anterolateral infarct, age undetermined Abnormal ECG Compared to ECG 12/03/2018 22:49:16 Left ventricular hypertrophy now present Sinus tachycardia no longer present Myocardial infarct finding still present Electronically Signed On 12-21-18 12:19:30 ACCOUNT SERVICE ASSOCIATE by Car Zapata
--- NOTE | 2018-12-21 15:16 | CON ---
Date of Consultation: 12/21/2018 Reason For Consultation: Chest pain. History Of Present Illness: Mr. Plasencia is a 33-year-old, who has already had a CABG and multiple sten ts, has severe dyslipidemia and depression. He used to be an inmate. He cannot afford his medicine, has not taken any. He comes in with chest pain, mid-epigastric pain. No nausea, vomiting, diaphore sis, PND, orthopnea, pedal edema, palpitations, or syncope. He has already ruled out for an CO. His chest pain was continuous, worse when he laid down, not exertional, relieves with morphine. Past Medical History: As stated above. Allergies: NONE. Review of Systems: Negative. Social History: Positive for tobacco. Family History: Noncontributory. Medications: At home are supposed to be Zoloft, aspirin, Plavix, Lipitor, Imdur, and metoprolol, but has not taken any. Physical Examination: Vital Signs: Stable. Afebrile. HEENT: Negative. Neck: Supple. No bruit. Chest: Clear to auscultation and percussion. Cardiac: Revealed a regular rhythm and rate. No murmurs, gallops, or rubs. Abdomen: Benign. Extremities: Reveal no clubbing, cyanosis, or edema. Diagnostic Data: EKG showed old inferior and anterior CO. CT of the abdomen showed hepatomegaly wit h a small kidney stone on the left. Chest x-ray was negative. Troponin is negative. Cholesterol wa s 455 with an LDL of 266. Impression And Plan: Chest pain, most likely gastroesophageal reflux disease in nature. Myocardial infarction has been ruled out. EKG shows no acute changes. He is pain free. I feel comfortable wit h him going home. I will be happy to see him in the office in the next 2 weeks. I wrote a prescript ion for him for aspirin, metoprolol, Lipitor, and nitroglycerin as needed. Compliance is a big issue with him, that will need to be addressed as an outpatient. Mr. Plasencia can go home whenever it is oka y with Dr. De La Garza. GIOVANA/MILESL Voice ID: [id number] Report ID: [id number]
[2018-12-21] MEDS ORDERED: ATORVASTATIN 40 MG TAB PO SCH (21:00)
== END 2018-12-21 13:32 | disposition home or self-care (01) ==
LOC: ER 18:19 → ERHOLD 22:33 → 2ND 12-21 00:17
PROVIDERS: ADMIT Hospitalist; ATTEND Family Medicine
DX: R07.9 Chest pain, unspecified (principal); E78.00 Pure hypercholesterolemia, unspecified; I10 Essential (primary) hypertension; F41.8 Other specified anxiety disorders; F17.200 Nicotine dependence, unspecified, uncomplicated; I25.10 Atherosclerotic heart disease of native coronary artery without angina pectoris; Z95.1 Presence of aortocoronary bypass graft
CPT/HCPCS: 36415; 71045; 80048; 80061; 80076; 80307; 81003; 82947; 83690; 83735; 83880; 84484; 85025; 85610; 90471; 93005; 96374; 99285; G0378; J1650; J3010; Q2035

== ENCOUNTER 2019-01-26 15:52 | Emergency (ER) | payer SELFPAY ==
--- NOTE | 2019-01-26 16:29 | RAD REPORT ---
EXAM DESCRIPTION: RAD - Hand Right 3 View - 01/26/2019 4:17 pm CLINICAL HISTORY: PAIN COMPARISON: No comparisons FINDINGS: Mildly impacted fracture of the second metacarpal neck is present. No dislocation.
--- NOTE | 2019-01-26 16:42 | EDPHYS ---
Physician Documentation [facility] Name: Mohit Plasencia Age: 33 yrs Sex: Male : 1985 Arrival Date: 01/26/2019 Time: 15:54 Bed 18 Private MD: ED Physician Elgin Willis HPI: 01/26 16:42 This 33 yrs old Male presents to ER via Ambulatory with complaints of Hand kb Injury. 16:42 The patient or guardian reports deformity, injury, pain, swelling, tenderness. The kb complaints affect the dorsum of right hand. Context: The problem was sustained at a friend's house, resulted from punching a punching bag. Onset: The symptoms/episode began/occurred 4 day(s) ago. Modifying factors: The symptoms are alleviated by nothing, the symptoms are aggravated by nothing. Associated signs and symptoms: The patient has no apparent associated signs or symptoms. Severity of symptoms: At their worst the symptoms were mild, in the emergency department the symptoms are unchanged. The patient has not experienced similar symptoms in the past. The patient has not recently seen a physician. Pt reports he punched a punching bag wrong over the weekend and injured his hand. Came in today because he needs a work release . Historical: - Allergies: 16:00 No Known Allergies; hb - Home Meds: 16:00 aspirin 81 mg Oral chew 1 tab once daily [Active]; lisinopril Oral [Active]; Metoprolol hb Tartrate Oral [Active]; Nitroglycerin SL [Active]; Plavix Oral [Active]; Zoloft Oral [Active]; - PMHx: 16:00 CAD; cardiac stents; Myocardial infarction; x5; triple bypass; hb - Immunization history:: Adult Immunizations up to date. - Social history:: Smoking status: Patient uses tobacco products, smokes one-half pack cigarettes per day. - Ebola Screening: : No symptoms or risks identified at this time. ROS: 16:48 Constitutional: Negative for fever, chills, and weight loss, Neck: Negative for injury, kb pain, and swelling, Cardiovascular: Negative for chest pain, palpitations, and edema, Respiratory: Negative for shortness of breath, cough, wheezing, and pleuritic chest pain, Abdomen/GI: Negative for abdominal pain, nausea, vomiting, diarrhea, and constipation, Back: Negative for injury and pain, Skin: Negative for injury, rash, and discoloration, Neuro: Negative for headache, weakness, numbness, tingling, and seizure. 16:48 MS/extremity: Positive for injury or acute deformity, deformity, pain, swelling, tenderness, of the dorsum of right hand. Exam: 16:48 Constitutional: This is a well developed, well nourished patient who is awake, alert, kb and in no acute distress. Head/Face: Normocephalic, atraumatic. ENT: Nares patent. No nasal discharge, no septal abnormalities noted. Tympanic membranes are normal and external auditory canals are clear. Oropharynx with no redness, swelling, or masses, exudates, or evidence of obstruction, uvula midline. Mucous membranes moist. Neck: Trachea midline, no thyromegaly or masses palpated, and no cervical lymphadenopathy. Supple, full range of motion without nuchal rigidity, or vertebral point tenderness. No Meningismus. Chest/axilla: Normal chest wall appearance and motion. Nontender with no deformity. No lesions are appreciated. Cardiovascular: Regular rate and rhythm with a normal S1 and S2. No gallops, murmurs, or rubs. Normal PMI, no JVD. No pulse deficits. Respiratory: Lungs have equal breath sounds bilaterally, clear to auscultation and percussion. No rales, rhonchi or wheezes noted. No increased work of breathing, no retractions or nasal flaring. Abdomen/GI: Soft, non-tender, with normal bowel sounds. No distension or tympany. No guarding or rebound. No evidence of tenderness throughout. Skin: Warm, dry with normal turgor. Normal color with no rashes, no lesions, and no evidence of cellulitis. Neuro: Awake and alert, GCS 15, oriented to person, place, time, and situation. Cranial nerves II-XII grossly intact. Motor strength 5/5 in all extremities. Sensory grossly intact. Cerebellar exam normal. Normal gait. 16:48 Musculoskeletal/extremity: Extremities: grossly normal except: noted in the dorsum of right hand: deformity, pain, swelling, tenderness, ROM: intact in all extremities, Circulation is intact in all extremities. Sensation intact. Vital Signs: 16:00 BP 144 / 93; Pulse 100; Resp 20; Temp 97.8; Pulse Ox 100% on R/A; Weight 108.86 kg; hb Height 5 ft. 11 in. (180.34 cm); Pain 7/10; 16:00 Body Mass Index 33.47 (108.86 kg, 180.34 cm) hb Procedures: 17:36 Splinting: Splint applied to right hand using Orthoglass splint, applied by tech. kb Examined by me, post splint application: neurovascular intact, 2+ distal pulses palpable, brisk capillary refill noted, Patient tolerated well. MDM: 16:03 Patient medically screened. kb 16:46 Data reviewed: vital signs, nurses notes. Data interpreted: Pulse oximetry: on room air kb is 100 %. Interpretation: normal. Counseling: I had a detailed discussion with the patient and/or guardian regarding: the historical points, exam findings, and any diagnostic results supporting the discharge/admit diagnosis, radiology results, the need for outpatient follow up, a orthopedic surgeon, to return to the emergency department if symptoms worsen or persist or if there are any questions or concerns that arise at home. ED course: Educated pt on fracture and need for follow up with orthopedist. Pt states "I just need a release to go back to work." Educated that he can get a full release from the orthopedist. Pt and significant other became upset because they can't follow up due to financial reasons and just want a release so he can return to work. Release written for pt with restriction that he must keep splint in place until cleared by ortho. 01/26 16:03 Order name: Hand Right 3 View XRAY; Complete Time: 16:35 kb 01/26 16:37 Order name: Volar Wrist Splint; Complete Time: 17:09 kb Administered Medications: 17:03 Drug: [place] 5 mg-325 mg 1 tabs Route: PO; sg 18:41 Follow up: Response: No adverse reaction; Pain is decreased sg Disposition: 01/27 07:19 Co-signature as Attending Physician, Elgin Willis MD I agree with the assessment and kdr plan of care. Disposition: 01/26/19 16:41 Discharged to Home. Impression: Displaced fracture of base of second metacarpal bone, right hand. - Condition is Stable. - Discharge Instructions: Metacarpal Fracture, [id number]. - Work release form, Medication Reconciliation Form, Thank You Letter, Antibiotic Education, Prescription Opioid Use form. - Follow up: Emergency Department; When: As needed; Reason: Worsening of condition. Follow up: Private Physician; When: 2 - 3 days; Reason: Recheck today's complaints, Continuance of care, Re-evaluation by your physician. Signatures: Dispatcher [employer] EDMS MacarioEmilAnais, RIDGE-C RIDGE-Jimmy Biswas, RN RN Elgin Willis MD MD [facility] Hetal Suh RN RN Corrections: (The following items were deleted from the chart) 01/26 17:36 16:41 01/26/2019 16:41 Discharged to Home. Impression: Displaced fracture of base of hb second metacarpal bone, right hand. Condition is Stable. Forms are Medication Reconciliation Form, Thank You Letter, Antibiotic Education, Prescription Opioid Use. Follow up: Emergency Department; When: As needed; Reason: Worsening of condition. Follow up: Private Physician; When: 2 - 3 days; Reason: Recheck today's complaints, Continuance of care, Re-evaluation by your physician. kb
--- NOTE | 2019-01-26 16:42 | ER ---
Nurse's Notes [facility] Name: Mohit Plasencia Age: 33 yrs Sex: Male : 1985 Arrival Date: 01/26/2019 Time: 15:54 Bed 18 Private MD: Diagnosis: Displaced fracture of base of second metacarpal bone, right hand Presentation: 01/26 15:59 Presenting complaint: Right hand pain and swelling after hitting punching bag 4 days hb ago. Transition of care: patient was not received from another setting of care. Onset of symptoms was January 23, 2019. Risk Assessment: Do you want to hurt yourself or someone else? Patient reports no desire to harm self or others. Initial Sepsis Screen: Does the patient meet any 2 criteria? No. Patient's initial sepsis screen is negative. Does the patient have a suspected source of infection? No. Patient's initial sepsis screen is negative. Care prior to arrival: None. 15:59 Method Of Arrival: Ambulatory hb 15:59 Acuity: CATHERINE 4 hb Historical: - Allergies: 16:00 No Known Allergies; hb - Home Meds: 16:00 aspirin 81 mg Oral chew 1 tab once daily [Active]; lisinopril Oral [Active]; Metoprolol hb Tartrate Oral [Active]; Nitroglycerin SL [Active]; Plavix Oral [Active]; Zoloft Oral [Active]; - PMHx: 16:00 CAD; cardiac stents; Myocardial infarction; x5; triple bypass; hb - Immunization history:: Adult Immunizations up to date. - Social history:: Smoking status: Patient uses tobacco products, smokes one-half pack cigarettes per day. - Ebola Screening: : No symptoms or risks identified at this time. Screenin:30 Abuse screen: Denies threats or abuse. Denies injuries from another. Nutritional sg screening: No deficits noted. Tuberculosis screening: No symptoms or risk factors identified. Never had TB. Fall Risk None identified. Assessment: 16:17 Reassessment: Patient appears in no apparent distress at this time. Abril SABILLON at sg bedside. Vital Signs: 16:00 BP 144 / 93; Pulse 100; Resp 20; Temp 97.8; Pulse Ox 100% on R/A; Weight 108.86 kg; hb Height 5 ft. 11 in. (180.34 cm); Pain 7/10; 16:00 Body Mass Index 33.47 (108.86 kg, 180.34 cm) hb ED Course: 15:54 Patient arrived in ED. mr 15:59 Triage completed. hb 16:00 Arm band placed on. hb 16:02 Anais Sorto FNP-C is [facility]. kb 16:02 Elgin Willis MD is Attending Physician. kb 16:05 Olga Short, RN is Primary Nurse. ca1 16:13 Jimmy Hicks, SARI is Primary Nurse. sg 16:17 Hand Right 3 View XRAY In Process Unspecified. EDMS 17:06 Orthoglass splint: Volar splint applied on right arm capillary refill <3 seconds, dh3 viewed by Fadumo Sorto NP. 17:30 Patient has correct armband on for positive identification. Bed in low position. Call sg light in reach. Side rails up X2. Pulse ox on. NIBP on. Head of bed elevated. 17:30 No provider procedures requiring assistance completed. Patient did not have IV access sg during this emergency room visit. Administered Medications: 17:03 Drug: [place] 5 mg-325 mg 1 tabs Route: PO; sg 18:41 Follow up: Response: No adverse reaction; Pain is decreased sg Outcome: 16:41 Discharge ordered by . kb 17:30 Discharged to home ambulatory, with family. sg 17:30 Condition: good 17:30 Discharge instructions given to patient, Instructed on discharge instructions, follow up and referral plans. safety practices, Demonstrated understanding of instructions, follow-up care. 17:36 Patient left the ED. hb Signatures: Dispatcher [employer] EDMI Anais Sorto FNP-C FISH SEINER-Ckb Jimmy Hicks, SARI GUO sg Lilian SchultzHetal RN RN Tomasa Nolasco 3 Olga Short RN RN ca1
[2019-01-26] MEDS ORDERED: HYDROCODONE/APAP 5/325 MG TAB ONE (17:06)
[2019-01-27 04:39] VITALS: BP 144/93; TEMP 97.8; O2SAT 100
== END 2019-01-26 17:36 | disposition home or self-care (01) ==
LOC: ER 15:52
PROC: 2W3CX1Z Immobilization of Right Lower Arm using Splint (ICD-10-PCS; principal; 2019-01-26)
DX: S62.310A Displaced fracture of base of second metacarpal bone, right hand, initial encounter for closed fracture (principal); W22.8XXA Striking against or struck by other objects, initial encounter; Y93.89 Activity, other specified; Y92.89 Other specified places as the place of occurrence of the external cause; Z79.82 Long term (current) use of aspirin; Z95.818 Presence of other cardiac implants and grafts; I25.2 Old myocardial infarction; F17.210 Nicotine dependence, cigarettes, uncomplicated
CPT/HCPCS: 99284